=== PATIENT | female | born 1950 | race Caucasian/White ===

== ENCOUNTER 2023-12-09 07:58 | Inpatient (IN) | payer MEDICARE, OTHER ==
[~2023-12-09] VITALS: Ht 154.9 cm; Wt 91.2 kg
[2023-12-09] MEDS ORDERED: MULT-188 PO (15:55)
[2023-12-09] MEDS ORDERED: ZOLM5TAB10 PO (15:55)
[2023-12-09] MEDS ORDERED: CYAN25003 SL (15:55)
[2023-12-09] MEDS ORDERED: DOCU100C36 PO (15:55)
[2023-12-09] MEDS ORDERED: CHOL100043 PO (15:55)
[2023-12-09] MEDS ORDERED: BECL10.62 IH (15:55)
[2023-12-09] MEDS ORDERED: OMEP40CA21 PO (15:55)
[2023-12-09] MEDS ORDERED: ALBU8.5H8 IH (15:55)
[2023-12-09] MEDS ORDERED: AMLO5TAB4 PO (15:55)
[2023-12-09] MEDS ORDERED: VALS320T16 PO (15:55)
[2023-12-09] MEDS ORDERED: OXYC5TAB3 PO (15:55)
[2023-12-09] MEDS ORDERED: ROSU40TA PO (15:55)
[2023-12-09] MEDS ORDERED: VENL150C58 PO (15:55)
[2023-12-09] MEDS ORDERED: ASCO-495 PO (15:55)
[2023-12-09] MEDS ORDERED: HYDR-4303 PO (15:55)
[2023-12-09] MEDS ORDERED: PREG75CA PO (15:55)
[2023-12-09] MEDS ORDERED: HYDROCODONE/APAP 5/325MG TABLET PO PRN (18:30)
[2023-12-09] MEDS ORDERED: ACETAMINOPHEN 325 MG TABLET PO PRN (18:30)
[2023-12-09] MEDS ORDERED: MORPHINE SULFATE INJ 2 MG/ML DISP.SYRIN IV PRN (18:30)
[2023-12-09] MEDS ORDERED: MAGNESIUM HYDROXIDE 30 ML UDC PO PRN (18:30)
[2023-12-09] MEDS ORDERED: ZOLPIDEM TARTRATE 5 MG TABLET PO PRN (18:30)
[2023-12-09] MEDS ORDERED: ONDANSETRON HCL/PF 4 MG/2 ML VIAL IVP PRN (18:30)
[2023-12-09] MEDS ORDERED: MAG HYDROX/AL HYDROX/SIMETH 30 ML UDC PO PRN (18:30)
[2023-12-09] MEDS ORDERED: Z GUARD REMEDY 4 OZ OINT TP PRN (18:30)
[2023-12-09] MEDS: IV D5/0.45 NACL 1,000 ML IV PRN (18:33)
[2023-12-09] MEDS: PANTOPRAZOLE 40 MG VIAL IV SCH (18:33)
[2023-12-09 20:00] VITALS: BP 148/70; TEMP 98.6; O2SAT 95
[2023-12-09 20:13] LABS: APPEARANCE,URINE SLIGHTLY CLOUDY (CLEAR); BILIRUBIN,URINE NEGATIVE (NEGATIVE); BLOOD, URINE 3+ Ery/uL (NEGATIVE); COLOR,URINE YELLOW (YELLOW); KETONES,URINE NEGATIVE (NEGATIVE); LEUKOCYTE ESTERASE ,URINE TRACE (NEGATIVE); NITRITE, URINE NEGATIVE (NEGATIVE); PROTEIN,URINE TRACE mg/dl (NEGATIVE); UGLUCOSE NEGATIVE (NEGATIVE); UROBILINOGEN,URINE 0.2 EU/dL (0.2)
[2023-12-09 20:35] LABS: RBC,URINE 51-80 /HPF (0-2)
[2023-12-09 20:36] LABS: ADD URINE CULTURE NO; BACTERIA,URINE RARE /HPF (None Seen); CALCIUM OXALATE CRYSTALS,UR Many /HPF (None Seen); MUCUS,URINE Few /LPF (None Seen); SQUAMOUS EPITHELIAL CELL,UR 0-2 /HPF (None Seen)
[2023-12-10 06:28] LABS: BASOPHILS % (AUTO) 0.4 % (0.0-2.0); EOSINOPHILS # (AUTO) 0.2 K/uL (0.0-0.7); EOSINOPHILS % (AUTO) 2.9 % (0.0-6.0); HEMATOCRIT 37 % (33-45); HEMOGLOBIN 12.6 g/dL (11.5-14.8); LYMPHOCYTES # (AUTO) 1.5 K/uL (0.8-4.8); LYMPHOCYTES % (AUTO) 27.1 % (20.0-44.0); MEAN CORPUSCULAR HEMOGLOBIN 30 PG (26.0-33.0); MEAN CORPUSCULAR HGB CONC 34 g/dl (31.0-36.0); MEAN CORPUSCULAR VOLUME 90 fL (82-100); MONOCYTES # (AUTO) 0.4 K/uL (0.1-1.30); MONOCYTES % (AUTO) 7.2 % (2.0-12.0); NEUTROPHILS # (AUTO) 3.3 K/uL (1.8-8.9); NEUTROPHILS % (AUTO) 62.4 % (43.0-81.0); PLATELET COUNT (AUTO) 149 K/uL (150-450); RED BLOOD CELL COUNT(AUTO) 4.14 MIL/uL (4.0-5.2); RED CELL DISTRIBUTION WIDTH 13.9 % (11.5-15.0); WHITE BLOOD COUNT (AUTO) 5.4 K/uL (4.3-11.0)
[2023-12-10 06:31] LABS: ALANINE AMINOTRANSFERASE 30 U/L (12-78); ALBUMIN 3.4 g/dL (3.4-5.0); ALKALINE PHOSPHATASE 83 U/L (46-116); ASPARTATE AMINOTRANSFERASE 29 U/L (15-37); BILIRUBIN,TOTAL 0.3 mg/dL (0.2-1.0); CALCIUM, SERUM 8.9 mg/dL (8.5-10.1); CARBON DIOXIDE 25 mmol/L (21-32); CHLORIDE 107 mmol/L (98-107); CHOLESTEROL 171 mg/dL (<200); CREATININE 0.9 mg/dL (0.6-1.3); GLUCOSE 96 mg/dL (74-106); HDL CHOLESTEROL 67 mg/dL (40-60); INR 0.98 (0.91-1.10); LDL 76 mg/dL (0-99); MAGNESIUM 1.9 mg/dL (1.8-2.4); PARTIAL THROMBOPLASTIN TIME 28.8 SEC (24.3-34.3); POTASSIUM 3.8 mmol/L (3.5-5.1); PROTHROMBIN TIME 10.4 SECS (9.2-11.1); SODIUM SERUM 140 mmol/L (136-145); TOTAL PROTEIN, SERUM 6.3 g/dL (6.4-8.2); TRIGLYCERIDES 112 mg/dL (30-150); UREA NITROGEN, BLOOD 22 mg/dL (7-18)
[2023-12-10 08:00] VITALS: BP 150/75; TEMP 98.2; O2SAT 97
[2023-12-10] MEDS ORDERED: POLYMYXIN B SULFATE 500,000 UNITS ONE (08:57)
[2023-12-10] MEDS ORDERED: BUPIVACAINE 0.5 % PF 150 MG/30 ML VIAL ONE (08:57)
[2023-12-10] MEDS ORDERED: LIDOCAINE 2%-EPI 1:100,000 30 ML VIAL ONE (08:57)
[2023-12-10] MEDS ORDERED: HEMOSTATIC MATRIX 8 ML 1 EACH PAD MC ONE (08:57)
[2023-12-10] MEDS ORDERED: LIDOCAINE 5% (PATCH) 1 EA PATCH TP ONE (08:58)
[2023-12-10] MEDS ORDERED: CELLULOSE,OXIDIZED 1 PKT EACH MC ONE (08:58)
[2023-12-10] MEDS ORDERED: CELLULOSE,OXIDIZED 1 EACH EACH MC ONE (08:58)
[2023-12-10] MEDS ORDERED: ANESTHESIA TRAY IN PYXIS 1 EA TRAY MC ONE (08:58)
[2023-12-10] MEDS ORDERED: CEFAZOLIN 1 GM ONE (08:58)
[2023-12-10] MEDS ORDERED: FENTANYL PF 100MCG/2ML AMPUL ONE (09:22)
[2023-12-10] MEDS ORDERED: ROCURONIUM BROMIDE 50 MG/5 ML ONE (10:45)
[2023-12-10] MEDS ORDERED: LEVOFLOXACIN 500 MG /D5W 100ML 100 ML IV ONE (11:03)
[2023-12-10] MEDS ORDERED: DOCUSATE SODIUM 100 MG CAPSULE PO PRN (11:30)
[2023-12-10] MEDS ORDERED: oxyCODONE IR immediate release 5 MG TABLET PO PRN (11:30)
[2023-12-10] MEDS ORDERED: HYDROCODONE/APAP 5/325MG TABLET PO PRN (11:30)
[2023-12-10] MEDS ORDERED: HYDROMORPHONE 1 MG/1 ML DISP.SYRIN IV PRN ×2 (13:00→13:57)
[2023-12-10] MEDS ORDERED: METOCLOPRAMIDE HCL 10 MG/2 ML VIAL IV PRN (13:00)
[2023-12-10] MEDS: HYDROMORPHONE 1 MG/1 ML DISP.SYRIN IV PRN (14:03)
[2023-12-10 16:00] VITALS: BP 133/71; TEMP 97.5; O2SAT 96
[2023-12-10] MEDS: ANCEF 1 GM/50 ML D5W IV SCH (16:10)
[2023-12-10] MEDS: oxyCODONE/APAP (5/325 MG) 1 UDTAB TABLET PO PRN (16:28)
[2023-12-10] MEDS: PREGABALIN 25 MG CAPSULE PO SCH (20:10)
[2023-12-11 06:55] LABS: BASOPHILS % (AUTO) 0.1 % (0.0-2.0); EOSINOPHILS % (AUTO) 0.1 % (0.0-6.0); HEMATOCRIT 37 % (33-45); LYMPHOCYTES % (AUTO) 12.6 % (20.0-44.0); MEAN CORPUSCULAR HEMOGLOBIN 30 PG (26.0-33.0); MEAN CORPUSCULAR HGB CONC 33 g/dl (31.0-36.0); MEAN CORPUSCULAR VOLUME 92 fL (82-100); MONOCYTES # (AUTO) 0.6 K/uL (0.1-1.30); MONOCYTES % (AUTO) 7.7 % (2.0-12.0); NEUTROPHILS # (AUTO) 6.5 K/uL (1.8-8.9); NEUTROPHILS % (AUTO) 79.5 % (43.0-81.0); PLATELET COUNT (AUTO) 133 K/uL (150-450); RED BLOOD CELL COUNT(AUTO) 3.98 MIL/uL (4.0-5.2); RED CELL DISTRIBUTION WIDTH 14.2 % (11.5-15.0); WHITE BLOOD COUNT (AUTO) 8.1 K/uL (4.3-11.0)
[2023-12-11 07:17] LABS: CALCIUM, SERUM 9.3 mg/dL (8.5-10.1); MAGNESIUM 1.8 mg/dL (1.8-2.4); PHOSPHORUS 3.7 mg/dL (2.5-4.9); POTASSIUM 4.3 mmol/L (3.5-5.1)
[2023-12-11] MEDS ORDERED: BUDESONIDE RESPULE INH 0.5 MG/2 ML AMPUL.NEB NEB SCH (07:36)
[2023-12-11] MEDS ORDERED: QVAR IH SCH (07:39)
[2023-12-11 08:00] VITALS: BP 132/69; TEMP 98.8; O2SAT 98
[2023-12-11] MEDS: CHOLECALCIFEROL 1,000 UNIT TABLET (VIT D3) PO SCH (08:45)
[2023-12-11] MEDS: CYANOCOBALAMIN 500 MCG TABLET PO SCH (08:46)
[2023-12-11] MEDS: AMLODIPINE BESYLATE 5 MG TABLET PO SCH (08:47)
[2023-12-11] MEDS: VALSARTAN 80 MG TABLET PO SCH (08:48)
[2023-12-11] MEDS: MULTIVIT W/MINERALS 1 TAB TABLET PO SCH (08:48)
[2023-12-11] MEDS: ATORVASTATIN 40 MG TABLET PO SCH (08:49)
[2023-12-11] MEDS ORDERED: SUMATRIPTAN SUCCINATE 25 MG TABLET PO PRN (11:30)
[2023-12-11] MEDS: QVAR INH SCH (12:21)
[2023-12-11] MEDS: LIDOCAINE 5% (PATCH) 1 EA PATCH TP ONE (14:24)
[2023-12-11 16:00] VITALS: BP 121/53; TEMP 98.6; O2SAT 92
[2023-12-11 20:00] VITALS: BP 145/67; TEMP 98.6; O2SAT 94
[2023-12-12 07:00] VITALS: BP 130/71; TEMP 97.7; O2SAT 97
[2023-12-12 07:09] LABS: BASOPHILS % (AUTO) 0.3 % (0.0-2.0); EOSINOPHILS # (AUTO) 0.2 K/uL (0.0-0.7); EOSINOPHILS % (AUTO) 2.5 % (0.0-6.0); HEMATOCRIT 35 % (33-45); HEMOGLOBIN 11.7 g/dL (11.5-14.8); LYMPHOCYTES # (AUTO) 1.7 K/uL (0.8-4.8); LYMPHOCYTES % (AUTO) 23.6 % (20.0-44.0); MEAN CORPUSCULAR HEMOGLOBIN 30 PG (26.0-33.0); MEAN CORPUSCULAR HGB CONC 34 g/dl (31.0-36.0); MEAN CORPUSCULAR VOLUME 91 fL (82-100); MONOCYTES # (AUTO) 0.6 K/uL (0.1-1.30); MONOCYTES % (AUTO) 7.9 % (2.0-12.0); NEUTROPHILS # (AUTO) 4.8 K/uL (1.8-8.9); NEUTROPHILS % (AUTO) 65.7 % (43.0-81.0); PLATELET COUNT (AUTO) 135 K/uL (150-450); RED BLOOD CELL COUNT(AUTO) 3.86 MIL/uL (4.0-5.2); RED CELL DISTRIBUTION WIDTH 14.1 % (11.5-15.0); WHITE BLOOD COUNT (AUTO) 7.3 K/uL (4.3-11.0)
[2023-12-12 08:00] LABS: CALCIUM, SERUM 9.5 mg/dL (8.5-10.1); CARBON DIOXIDE 26 mmol/L (21-32); CHLORIDE 105 mmol/L (98-107); CREATININE 0.9 mg/dL (0.6-1.3); GLUCOSE 83 mg/dL (74-106); MAGNESIUM 1.8 mg/dL (1.8-2.4); PHOSPHORUS 3.7 mg/dL (2.5-4.9); POTASSIUM 3.9 mmol/L (3.5-5.1); SODIUM SERUM 141 mmol/L (136-145); UREA NITROGEN, BLOOD 25 mg/dL (7-18)
[2023-12-12] MEDS: PANTOPRAZOLE 40 MG TABLET.DR PO SCH (08:14)
[2023-12-12] MEDS: VENLAFAXINE XR 150 MG CAP.SR.24H PO SCH (08:14)
[2023-12-12 08:15] VITALS: BP 130/71
== END 2023-12-12 14:50 | disposition home health service (06) | DRG 458 ==
LOC: MED 15:23
PROVIDERS: ADMIT Nurse Practitioner Acute Care; ATTEND Student in an Organized Health Care Education/Training Program
PROC: 0SG707Z Fusion of Right Sacroiliac Joint with Autologous Tissue Substitute, Open Approach (ICD-10-PCS; principal; 2023-12-10)
PROC: BR1DYZZ Fluoroscopy of Sacroiliac Joints using Other Contrast (ICD-10-PCS; 2023-12-10)
PROC: 0SG704Z Fusion of Right Sacroiliac Joint with Internal Fixation Device, Open Approach (ICD-10-PCS; 2023-12-10)
DX: M53.3 Sacrococcygeal disorders, not elsewhere classified (principal); M41.56 Other secondary scoliosis, lumbar region; E66.01 Morbid (severe) obesity due to excess calories; Z68.38 Body mass index [BMI] 38.0-38.9, adult; G20.A1 Parkinson's disease without dyskinesia, without mention of fluctuations; D64.9 Anemia, unspecified; E78.5 Hyperlipidemia, unspecified; G89.29 Other chronic pain; I10 Essential (primary) hypertension; G24.9 Dystonia, unspecified
CPT/HCPCS: 36415; 71045-TC; 72020-TC; 80048-TC; 80053-TC; 80061-TC; 81001; 83735-TC; 84100-TC; 85025-TC; 85730-TC; 86850-TC; 93307-TC; 97110-TC; 97116-TC; 97530-TC; A4223; A6253; C1713; C1769; C9113; G0378; J0330; J0690; J1100; J1170; J1956; J2405; J2704; J3010; J3490; J7030; J7060